=== PATIENT | female | born 1945 | race Hispanic/Latino ===

== ENCOUNTER → 2018-05-05 | Outpatient (CLI) | payer OTHER ==
[~2018-05-05] MED LIST: ASCO500T9 PO; ASPI-1197 PO; BETA2500 PO; BIOT10004 PO; CHOL200059 PO; FAMO1TAB36 PO; LEVO50TA4 PO; MEGE40TA PO; MULT-1258 PO; PRAS1TAB3 PO; VITAMIN B12 PO
== END | disposition home or self-care (01) ==
LOC: SHCH 09:11
PROVIDERS: ATTEND Internal Medicine Cardiovascular Disease
DX: I11.9 Hypertensive heart disease without heart failure (principal)
CPT/HCPCS: 93306

== ENCOUNTER → 2018-05-06 | Outpatient (CLI) | payer OTHER | END | disposition home or self-care (01) | LOC: SHCH 09:42 | PROVIDERS: ATTEND Internal Medicine Cardiovascular Disease | DX: I87.2 Venous insufficiency (chronic) (peripheral) (principal) | CPT/HCPCS: 93970 ==

== ENCOUNTER → 2019-01-20 | Outpatient (CLI) | payer OTHER ==
[~2019-01-20] MED LIST changes: -FAMO1TAB36 PO; +[UNRECOGNIZED DRUG - CODE] PO
== END | disposition home or self-care (01) ==
LOC: SHCH 08:00
PROVIDERS: ATTEND Internal Medicine Cardiovascular Disease
DX: I87.2 Venous insufficiency (chronic) (peripheral) (principal); K21.9 Gastro-esophageal reflux disease without esophagitis
CPT/HCPCS: 93970

== ENCOUNTER 2019-02-15 06:42 | Emergency (ER) | payer OTHER ==
[~2019-02-15 06:42] MED LIST changes: -BETA2500 PO; +[UNRECOGNIZED DRUG - CODE] PO
[2019-02-15] MEDS ORDERED: MORPHINE SULFATE 4 MG/1ML SYG ONE (07:36)
== END 2019-02-15 08:15 | disposition home or self-care (01) ==
LOC: EDH 06:42
DX: B02.9 Zoster without complications (principal); Z90.49 Acquired absence of other specified parts of digestive tract; Z90.710 Acquired absence of both cervix and uterus; Z88.1 Allergy status to other antibiotic agents
CPT/HCPCS: 96372; 99283; J2270

== ENCOUNTER → 2020-06-21 | Outpatient (CLI) | payer MEDICARE, OTHER ==
[~2020-06-21] MED LIST changes: +ASCO500T20 PO; -ASCO500T9 PO; -MEGE40TA PO; +MEGE40TA5 PO
== END | disposition home or self-care (01) ==
LOC: SHCH 09:50
PROVIDERS: ATTEND Internal Medicine Cardiovascular Disease
DX: I65.23 Occlusion and stenosis of bilateral carotid arteries (principal); I87.2 Venous insufficiency (chronic) (peripheral); I73.9 Peripheral vascular disease, unspecified; R09.89 Other specified symptoms and signs involving the circulatory and respiratory systems; R55 Syncope and collapse
CPT/HCPCS: 93306; 93356; 93880; 93925; 93970

== ENCOUNTER → 2022-08-28 | Outpatient (CLI) | payer MEDICARE ==
[~2022-08-28] MED LIST changes: +LIDOCAINE HCL 4% LTA SOL 4 ML VIAL TP ONE
== END | disposition home or self-care (01) ==
LOC: WHH 08:11
PROVIDERS: ATTEND Nurse Practitioner Family
DX: L59.8 Other specified disorders of the skin and subcutaneous tissue related to radiation (principal); S21.002A Unspecified open wound of left breast, initial encounter; C50.919 Malignant neoplasm of unspecified site of unspecified female breast; E03.9 Hypothyroidism, unspecified; E55.9 Vitamin D deficiency, unspecified; Z85.3 Personal history of malignant neoplasm of breast; X58.XXXA Exposure to other specified factors, initial encounter; Y93.89 Activity, other specified; Y92.89 Other specified places as the place of occurrence of the external cause; Y99.8 Other external cause status; Y84.2 Radiological procedure and radiotherapy as the cause of abnormal reaction of the patient, or of later complication, without mention of misadventure at the time of the procedure
CPT/HCPCS: 87070; 87077; 87186; G0463; A6212

== ENCOUNTER → 2022-09-03 | Outpatient (CLI) | payer MEDICARE ==
[~2022-09-03] MED LIST changes: +LIDOCAINE HCL 4% LTA SOL 4 ML VIAL ONE; -LIDOCAINE HCL 4% LTA SOL 4 ML VIAL TP ONE
== END | disposition home or self-care (01) ==
LOC: WHH 08:02
PROVIDERS: ATTEND Nurse Practitioner Family
DX: L59.8 Other specified disorders of the skin and subcutaneous tissue related to radiation (principal); C50.919 Malignant neoplasm of unspecified site of unspecified female breast; S21.002D Unspecified open wound of left breast, subsequent encounter; E03.9 Hypothyroidism, unspecified; E55.9 Vitamin D deficiency, unspecified; X58.XXXD Exposure to other specified factors, subsequent encounter; Y84.2 Radiological procedure and radiotherapy as the cause of abnormal reaction of the patient, or of later complication, without mention of misadventure at the time of the procedure
CPT/HCPCS: G0463; A6212

== ENCOUNTER → 2022-10-08 | Outpatient (CLI) | payer MEDICARE ==
[~2022-10-08] MED LIST changes: -LIDOCAINE HCL 4% LTA SOL 4 ML VIAL ONE
== END | disposition home or self-care (01) ==
LOC: WHH 08:01
PROVIDERS: ATTEND Nurse Practitioner Family
DX: L59.8 Other specified disorders of the skin and subcutaneous tissue related to radiation (principal); C50.919 Malignant neoplasm of unspecified site of unspecified female breast; S21.002D Unspecified open wound of left breast, subsequent encounter; E03.9 Hypothyroidism, unspecified; E55.9 Vitamin D deficiency, unspecified; Z85.9 Personal history of malignant neoplasm, unspecified; Z90.49 Acquired absence of other specified parts of digestive tract; Z90.710 Acquired absence of both cervix and uterus; Z79.899 Other long term (current) drug therapy; X58.XXXD Exposure to other specified factors, subsequent encounter; Y84.2 Radiological procedure and radiotherapy as the cause of abnormal reaction of the patient, or of later complication, without mention of misadventure at the time of the procedure
CPT/HCPCS: G0463; A6212

== ENCOUNTER → 2022-10-23 | Outpatient (CLI) | payer MEDICARE ==
[~2022-10-23] MED LIST changes: +HONEY 1 APPL/ML TUBE TP ONE; +LIDOCAINE HCL 4% LTA SOL 4 ML VIAL TP ONE
== END | disposition home or self-care (01) ==
LOC: WHH 08:01
PROVIDERS: ATTEND Nurse Practitioner Family
DX: L59.8 Other specified disorders of the skin and subcutaneous tissue related to radiation (principal); C50.919 Malignant neoplasm of unspecified site of unspecified female breast; S21.002D Unspecified open wound of left breast, subsequent encounter; E03.9 Hypothyroidism, unspecified; E55.9 Vitamin D deficiency, unspecified; Z85.9 Personal history of malignant neoplasm, unspecified; Z90.49 Acquired absence of other specified parts of digestive tract; Z90.710 Acquired absence of both cervix and uterus; Z79.899 Other long term (current) drug therapy; X58.XXXD Exposure to other specified factors, subsequent encounter; Y84.2 Radiological procedure and radiotherapy as the cause of abnormal reaction of the patient, or of later complication, without mention of misadventure at the time of the procedure
CPT/HCPCS: 11042; A6212

== ENCOUNTER → 2022-11-05 | Outpatient (CLI) | payer MEDICARE ==
[~2022-11-05] MED LIST changes: -HONEY 1 APPL/ML TUBE TP ONE
== END | disposition home or self-care (01) ==
LOC: WHH 07:55
PROVIDERS: ATTEND Nurse Practitioner Family
DX: L59.8 Other specified disorders of the skin and subcutaneous tissue related to radiation (principal); C50.919 Malignant neoplasm of unspecified site of unspecified female breast; S21.002D Unspecified open wound of left breast, subsequent encounter; E03.9 Hypothyroidism, unspecified; E55.9 Vitamin D deficiency, unspecified; Z85.9 Personal history of malignant neoplasm, unspecified; Z90.49 Acquired absence of other specified parts of digestive tract; Z90.710 Acquired absence of both cervix and uterus; Z79.899 Other long term (current) drug therapy; X58.XXXD Exposure to other specified factors, subsequent encounter; Y84.2 Radiological procedure and radiotherapy as the cause of abnormal reaction of the patient, or of later complication, without mention of misadventure at the time of the procedure
CPT/HCPCS: G0463; A6212

== ENCOUNTER → 2022-11-19 | Outpatient (CLI) | payer MEDICARE | END | disposition home or self-care (01) | LOC: WHH 07:59 | PROVIDERS: ATTEND Nurse Practitioner Family | DX: L59.8 Other specified disorders of the skin and subcutaneous tissue related to radiation (principal); S21.002D Unspecified open wound of left breast, subsequent encounter; C50.919 Malignant neoplasm of unspecified site of unspecified female breast; C78.02 Secondary malignant neoplasm of left lung; E03.9 Hypothyroidism, unspecified; E55.9 Vitamin D deficiency, unspecified; Z85.9 Personal history of malignant neoplasm, unspecified; Z90.49 Acquired absence of other specified parts of digestive tract; Z90.710 Acquired absence of both cervix and uterus; Z79.899 Other long term (current) drug therapy; X58.XXXD Exposure to other specified factors, subsequent encounter; Y84.2 Radiological procedure and radiotherapy as the cause of abnormal reaction of the patient, or of later complication, without mention of misadventure at the time of the procedure | CPT/HCPCS: G0463; A6212 ==

== ENCOUNTER → 2022-12-10 | Outpatient (CLI) | payer MEDICARE ==
[~2022-12-10] MED LIST changes: -LIDOCAINE HCL 4% LTA SOL 4 ML VIAL TP ONE
== END | disposition home or self-care (01) ==
LOC: WHH 07:51
PROVIDERS: ATTEND Nurse Practitioner Family
DX: L59.8 Other specified disorders of the skin and subcutaneous tissue related to radiation (principal); S21.002D Unspecified open wound of left breast, subsequent encounter; C50.919 Malignant neoplasm of unspecified site of unspecified female breast; C78.02 Secondary malignant neoplasm of left lung; E03.9 Hypothyroidism, unspecified; E55.9 Vitamin D deficiency, unspecified; Z85.9 Personal history of malignant neoplasm, unspecified; Z90.49 Acquired absence of other specified parts of digestive tract; Z90.710 Acquired absence of both cervix and uterus; X58.XXXD Exposure to other specified factors, subsequent encounter; Y84.2 Radiological procedure and radiotherapy as the cause of abnormal reaction of the patient, or of later complication, without mention of misadventure at the time of the procedure
CPT/HCPCS: G0463; A6212

== ENCOUNTER → 2022-12-24 | Outpatient (CLI) | payer MEDICARE ==
[~2022-12-24] MED LIST changes: +LIDOCAINE HCL 4% LTA SOL 4 ML VIAL TP ONE
== END | disposition home or self-care (01) ==
LOC: WHH 08:02
PROVIDERS: ATTEND Nurse Practitioner Family
DX: L59.8 Other specified disorders of the skin and subcutaneous tissue related to radiation (principal); S21.002D Unspecified open wound of left breast, subsequent encounter; C50.919 Malignant neoplasm of unspecified site of unspecified female breast; C78.02 Secondary malignant neoplasm of left lung; E03.9 Hypothyroidism, unspecified; E55.9 Vitamin D deficiency, unspecified; Z85.9 Personal history of malignant neoplasm, unspecified; Z90.49 Acquired absence of other specified parts of digestive tract; Z90.710 Acquired absence of both cervix and uterus; X58.XXXD Exposure to other specified factors, subsequent encounter; Y84.2 Radiological procedure and radiotherapy as the cause of abnormal reaction of the patient, or of later complication, without mention of misadventure at the time of the procedure
CPT/HCPCS: G0463; A6212

== ENCOUNTER → 2023-02-04 | Outpatient (CLI) | payer MEDICARE | END | disposition home or self-care (01) | LOC: WHH 07:48 | PROVIDERS: ATTEND Nurse Practitioner Family | DX: L59.8 Other specified disorders of the skin and subcutaneous tissue related to radiation (principal); S21.002D Unspecified open wound of left breast, subsequent encounter; C50.919 Malignant neoplasm of unspecified site of unspecified female breast; C78.02 Secondary malignant neoplasm of left lung; E03.9 Hypothyroidism, unspecified; E55.9 Vitamin D deficiency, unspecified; Z85.9 Personal history of malignant neoplasm, unspecified; Z90.710 Acquired absence of both cervix and uterus; Z79.899 Other long term (current) drug therapy; X58.XXXD Exposure to other specified factors, subsequent encounter; Y84.2 Radiological procedure and radiotherapy as the cause of abnormal reaction of the patient, or of later complication, without mention of misadventure at the time of the procedure | CPT/HCPCS: G0463; A6212; A6260 ==

== ENCOUNTER → 2023-02-25 | Outpatient (CLI) | payer MEDICARE | END | disposition home or self-care (01) | LOC: WHH 07:42 | PROVIDERS: ATTEND Nurse Practitioner Family | DX: L59.8 Other specified disorders of the skin and subcutaneous tissue related to radiation (principal); S21.002D Unspecified open wound of left breast, subsequent encounter; C78.02 Secondary malignant neoplasm of left lung; C50.919 Malignant neoplasm of unspecified site of unspecified female breast; E03.9 Hypothyroidism, unspecified; E55.9 Vitamin D deficiency, unspecified; Z90.710 Acquired absence of both cervix and uterus; Z90.49 Acquired absence of other specified parts of digestive tract; Z79.899 Other long term (current) drug therapy; X58.XXXD Exposure to other specified factors, subsequent encounter; Y84.2 Radiological procedure and radiotherapy as the cause of abnormal reaction of the patient, or of later complication, without mention of misadventure at the time of the procedure | CPT/HCPCS: G0463; A6212; A6260 ==

== ENCOUNTER → 2023-03-14 | Outpatient (CLI) | payer MEDICARE | END | disposition home or self-care (01) | LOC: WHH 07:52 | PROVIDERS: ATTEND Nurse Practitioner Family | DX: L59.8 Other specified disorders of the skin and subcutaneous tissue related to radiation (principal); S21.002D Unspecified open wound of left breast, subsequent encounter; L03.313 Cellulitis of chest wall; C78.02 Secondary malignant neoplasm of left lung; C50.919 Malignant neoplasm of unspecified site of unspecified female breast; E03.9 Hypothyroidism, unspecified; E55.9 Vitamin D deficiency, unspecified; Z90.710 Acquired absence of both cervix and uterus; Z90.49 Acquired absence of other specified parts of digestive tract; Z79.899 Other long term (current) drug therapy; X58.XXXD Exposure to other specified factors, subsequent encounter; Y84.2 Radiological procedure and radiotherapy as the cause of abnormal reaction of the patient, or of later complication, without mention of misadventure at the time of the procedure | CPT/HCPCS: 87070; 87077 ×2; 87186 ×2; G0463; A6212 ==

== ENCOUNTER → 2023-03-25 | Outpatient (CLI) | payer MEDICARE | END | disposition home or self-care (01) | LOC: WHH 07:57 | PROVIDERS: ATTEND Nurse Practitioner Family | DX: L59.8 Other specified disorders of the skin and subcutaneous tissue related to radiation (principal); S21.002D Unspecified open wound of left breast, subsequent encounter; L03.313 Cellulitis of chest wall; C78.02 Secondary malignant neoplasm of left lung; C50.919 Malignant neoplasm of unspecified site of unspecified female breast; E03.9 Hypothyroidism, unspecified; E55.9 Vitamin D deficiency, unspecified; Z90.710 Acquired absence of both cervix and uterus; Z90.49 Acquired absence of other specified parts of digestive tract; Z79.899 Other long term (current) drug therapy; X58.XXXD Exposure to other specified factors, subsequent encounter; Y84.2 Radiological procedure and radiotherapy as the cause of abnormal reaction of the patient, or of later complication, without mention of misadventure at the time of the procedure | CPT/HCPCS: G0463; A6212 ==

== ENCOUNTER → 2023-04-15 | Outpatient (CLI) | payer MEDICARE | END | disposition home or self-care (01) | LOC: WHH 08:02 | PROVIDERS: ATTEND Nurse Practitioner Family | DX: L59.8 Other specified disorders of the skin and subcutaneous tissue related to radiation (principal); S21.002D Unspecified open wound of left breast, subsequent encounter; L03.313 Cellulitis of chest wall; C78.02 Secondary malignant neoplasm of left lung; C50.919 Malignant neoplasm of unspecified site of unspecified female breast; E03.9 Hypothyroidism, unspecified; E55.9 Vitamin D deficiency, unspecified; Z90.710 Acquired absence of both cervix and uterus; Z90.49 Acquired absence of other specified parts of digestive tract; Z79.899 Other long term (current) drug therapy; X58.XXXD Exposure to other specified factors, subsequent encounter; Y84.2 Radiological procedure and radiotherapy as the cause of abnormal reaction of the patient, or of later complication, without mention of misadventure at the time of the procedure | CPT/HCPCS: G0463; A6260 ==

== ENCOUNTER → 2023-04-29 | Outpatient (CLI) | payer MEDICARE | END | disposition home or self-care (01) | LOC: WHH 08:03 | PROVIDERS: ATTEND Nurse Practitioner Family | DX: L59.8 Other specified disorders of the skin and subcutaneous tissue related to radiation (principal); S21.002D Unspecified open wound of left breast, subsequent encounter; L03.313 Cellulitis of chest wall; C78.02 Secondary malignant neoplasm of left lung; C50.919 Malignant neoplasm of unspecified site of unspecified female breast; E03.9 Hypothyroidism, unspecified; E55.9 Vitamin D deficiency, unspecified; Z90.710 Acquired absence of both cervix and uterus; Z90.49 Acquired absence of other specified parts of digestive tract; Z79.899 Other long term (current) drug therapy; Y84.2 Radiological procedure and radiotherapy as the cause of abnormal reaction of the patient, or of later complication, without mention of misadventure at the time of the procedure; X58.XXXD Exposure to other specified factors, subsequent encounter | CPT/HCPCS: 11042; A6212; A6260 ==

== ENCOUNTER → 2023-05-13 | Outpatient (CLI) | payer MEDICARE | END | disposition home or self-care (01) | LOC: WHH 08:05 | PROVIDERS: ATTEND Nurse Practitioner Family | DX: L59.8 Other specified disorders of the skin and subcutaneous tissue related to radiation (principal); S21.002D Unspecified open wound of left breast, subsequent encounter; L03.313 Cellulitis of chest wall; C78.02 Secondary malignant neoplasm of left lung; C50.919 Malignant neoplasm of unspecified site of unspecified female breast; E03.9 Hypothyroidism, unspecified; E55.9 Vitamin D deficiency, unspecified; Z90.710 Acquired absence of both cervix and uterus; Z90.49 Acquired absence of other specified parts of digestive tract; Z79.899 Other long term (current) drug therapy; X58.XXXD Exposure to other specified factors, subsequent encounter; Y84.2 Radiological procedure and radiotherapy as the cause of abnormal reaction of the patient, or of later complication, without mention of misadventure at the time of the procedure | CPT/HCPCS: G0463; A6212 ==

== ENCOUNTER → 2023-05-27 | Outpatient (CLI) | payer MEDICARE | END | disposition home or self-care (01) | LOC: WHH 08:10 | PROVIDERS: ATTEND Nurse Practitioner Family | DX: S21.002D Unspecified open wound of left breast, subsequent encounter (principal); L59.8 Other specified disorders of the skin and subcutaneous tissue related to radiation; L03.313 Cellulitis of chest wall; C78.02 Secondary malignant neoplasm of left lung; C50.919 Malignant neoplasm of unspecified site of unspecified female breast; E03.9 Hypothyroidism, unspecified; E55.9 Vitamin D deficiency, unspecified; Z90.710 Acquired absence of both cervix and uterus; Z90.49 Acquired absence of other specified parts of digestive tract; Z79.899 Other long term (current) drug therapy; X58.XXXD Exposure to other specified factors, subsequent encounter; Y84.2 Radiological procedure and radiotherapy as the cause of abnormal reaction of the patient, or of later complication, without mention of misadventure at the time of the procedure | CPT/HCPCS: G0463; A6212 ==

== ENCOUNTER → 2023-06-25 | Outpatient (CLI) | payer MEDICARE | END | disposition home or self-care (01) | LOC: WHH 08:05 | PROVIDERS: ATTEND Nurse Practitioner Family | DX: T81.31XA Disruption of external operation (surgical) wound, not elsewhere classified, initial encounter (principal); S21.002D Unspecified open wound of left breast, subsequent encounter; L59.8 Other specified disorders of the skin and subcutaneous tissue related to radiation; L03.313 Cellulitis of chest wall; C78.02 Secondary malignant neoplasm of left lung; C50.919 Malignant neoplasm of unspecified site of unspecified female breast; E03.9 Hypothyroidism, unspecified; E55.9 Vitamin D deficiency, unspecified; Z90.710 Acquired absence of both cervix and uterus; Z90.49 Acquired absence of other specified parts of digestive tract; Z79.899 Other long term (current) drug therapy; X58.XXXD Exposure to other specified factors, subsequent encounter; Y84.2 Radiological procedure and radiotherapy as the cause of abnormal reaction of the patient, or of later complication, without mention of misadventure at the time of the procedure; Y83.8 Other surgical procedures as the cause of abnormal reaction of the patient, or of later complication, without mention of misadventure at the time of the procedure; Y92.89 Other specified places as the place of occurrence of the external cause | CPT/HCPCS: G0463; A6248 ×3; A6196; A4450 ==

== ENCOUNTER → 2023-07-09 | Outpatient (CLI) | payer MEDICARE | END | disposition home or self-care (01) | LOC: WHH 08:06 | PROVIDERS: ATTEND Nurse Practitioner Family | DX: T81.31XD Disruption of external operation (surgical) wound, not elsewhere classified, subsequent encounter (principal); S21.002D Unspecified open wound of left breast, subsequent encounter; L59.8 Other specified disorders of the skin and subcutaneous tissue related to radiation; L03.313 Cellulitis of chest wall; C78.02 Secondary malignant neoplasm of left lung; C50.919 Malignant neoplasm of unspecified site of unspecified female breast; E03.9 Hypothyroidism, unspecified; E55.9 Vitamin D deficiency, unspecified; Z90.710 Acquired absence of both cervix and uterus; Z90.49 Acquired absence of other specified parts of digestive tract; Z79.899 Other long term (current) drug therapy; X58.XXXD Exposure to other specified factors, subsequent encounter; Y84.2 Radiological procedure and radiotherapy as the cause of abnormal reaction of the patient, or of later complication, without mention of misadventure at the time of the procedure; Y83.8 Other surgical procedures as the cause of abnormal reaction of the patient, or of later complication, without mention of misadventure at the time of the procedure | CPT/HCPCS: G0463; A6196 ==

== ENCOUNTER → 2023-07-22 | Outpatient (CLI) | payer MEDICARE | END | disposition home or self-care (01) | LOC: WHH 08:03 | PROVIDERS: ATTEND Nurse Practitioner Family | DX: T81.31XD Disruption of external operation (surgical) wound, not elsewhere classified, subsequent encounter (principal); S21.002D Unspecified open wound of left breast, subsequent encounter; L59.8 Other specified disorders of the skin and subcutaneous tissue related to radiation; L03.313 Cellulitis of chest wall; C78.02 Secondary malignant neoplasm of left lung; C50.919 Malignant neoplasm of unspecified site of unspecified female breast; E03.9 Hypothyroidism, unspecified; E55.9 Vitamin D deficiency, unspecified; Z90.710 Acquired absence of both cervix and uterus; Z90.49 Acquired absence of other specified parts of digestive tract; Z79.899 Other long term (current) drug therapy; X58.XXXD Exposure to other specified factors, subsequent encounter; Y84.2 Radiological procedure and radiotherapy as the cause of abnormal reaction of the patient, or of later complication, without mention of misadventure at the time of the procedure; Y83.8 Other surgical procedures as the cause of abnormal reaction of the patient, or of later complication, without mention of misadventure at the time of the procedure | CPT/HCPCS: G0463; A6196; A6022; A4450 ==